=== PATIENT | male | born 1955 | race Caucasian/White ===

== ENCOUNTER 2016-12-20 00:58 | Emergency (ER) | payer SELFPAY ==
[~2016-12-20 00:58] MED LIST: AMARYL2 MG PO; ASA325 MG PO; COLACE-DPS100 MG PO; GLUCOPHAGE-DPS500 MG PO; GLUTOSE 1537.5 GM PO; MAALOX DPS30 ML PO; METOPROLOL SUC100 MG PO; NORVASC DPS10 MG PO; PRAVACHOL40 MG PO; SURFAK DPS240 MG PO; TOPROL XL100 MG PO; TYLENOL DPS325 MG PO; ZESTRIL DPS5 MG PO; ZETIA10 MG PO
--- NOTE | 2016-12-20 05:31 | ER ---
ADMIT: 12/20/2016 RM/LOC: ER [facility] MR#: [id number] [address] [facility] [address] [address] [place] [address] Emergency Room Report SEX: M AGE: 61 : 1955 DATE: 12/20/2016 The patient is a 61-year-old male, status post CVA, complains of right paraspinous back pain today at work, gradually worse throughout the day. Denies any specific injury. No prior history of back injury. Exam remarkable for acutely uncomfortable male, tender right paraspinous region, thoracolumbar region. Given Toradol, Dilaudid, Reglan with marked improvement of pain. Home with naproxen 500 b.i.d. p.r.n. #60, hydrocodone 5/325 as needed #20 plus 6. Back rest, heat, followed by ice, and follow up [facility] as needed. David Bal MD/ jaynal JOB #: [id number] CC: David Bal MD, Attending Physician Pedro Mills MD, Family Physician . [facility]
== END 2016-12-20 02:00 | disposition home or self-care (01) ==
LOC: ER 00:58
DX: S23.3XXA Sprain of ligaments of thoracic spine, initial encounter (principal); I10 Essential (primary) hypertension; E11.9 Type 2 diabetes mellitus without complications; Z86.73 Personal history of transient ischemic attack (TIA), and cerebral infarction without residual deficits; Z88.0 Allergy status to penicillin; X50.1XXA Overexertion from prolonged static or awkward postures, initial encounter

== ENCOUNTER → 2017-01-26 | Outpatient (CLI) | payer OTHER | END | disposition home or self-care (01) | LOC: PTH.S 10-23 13:45 | DX: E11.9 Type 2 diabetes mellitus without complications (principal); I10 Essential (primary) hypertension ==